=== PATIENT | male | born 1980 | race Caucasian/White ===

== ENCOUNTER 2021-10-15 06:15 | Emergency (ER) | payer SELFPAY ==
[~2021-10-15] VITALS: Ht 172.7 cm; Wt 90.0 kg
[2021-10-15 08:20] LABS: BASOPHILS % 0.8 % (0.0-2.0); EOSINOPHILS % 1.1 % (0.0-5.0); HEMATOCRIT. 44.7 % (42.0-52.0); HEMOGLOBIN. 15.3 g/dL (14.0-18.0); MEAN CORPUSCULAR HEMOGLOBIN 29.6 pg (28.0-32.0); MEAN PLATELET VOLUME 10.9 fl (7.4-10.4); MONOCYTES % 5.5 % (2.0-8.0); NEUTROPHILS % 59.6 % (40.0-76.0); PLATELET 176 x1000/uL (130-400); RED BLOOD CELL COUNT 5.14 mill/uL (4.7-6.1); RED CELL DISTRIBUTION WIDTH 12.9 % (11.6-14.6)
[2021-10-15 08:27] LABS: CHLORIDE 109 mEq/L (98-107)
[2021-10-15 08:31] LABS: ETHANOL BLOOD 166 mg/dL
[2021-10-15 09:51] VITALS: BP 121/83
== END 2021-10-15 09:53 | disposition home or self-care (01) ==
LOC: ER 06:15
DX: F10.129 Alcohol abuse with intoxication, unspecified (principal); E11.65 Type 2 diabetes mellitus with hyperglycemia; Y90.6 Blood alcohol level of 120-199 mg/100 ml; R94.31 Abnormal electrocardiogram [ECG] [EKG]
CPT/HCPCS: 36415; 80053; 80320; 85025; 93005; 99284; G0480